=== PATIENT | female | born 1965 | race Caucasian/White ===

== ENCOUNTER 2024-04-08 11:28 | Emergency (ER) | payer BC, SELFPAY ==
--- NOTE | ~2024-04-08 | CT_ITS ---
EXAMINATION: CT abdomen pelvis w con DATE: 04/08/2024 16:16 INDICATION: Abdominal pain TECHNIQUE: Computed tomography (CT) of the abdomen and pelvis was performed with 100 mL Omnipaque-350 intravenous contrast. Automated exposure control and iterative reconstruction technique were employe d. The dose-length product was 673.04 mGy-cm. COMPARISON: None FINDINGS: Mild discoid atelectasis in the left lower lobe. Heart size is normal. No pericardial or pleural effu nicole. Liver, gallbladder, spleen, pancreas, bilateral adrenal glands and kidneys are normal. There is prominent edematous colonic wall thickening with surrounding stranding in the pericolonic fat. Begin [place] at the cecum and extending distally to the proximal most descending colon just beyond the spleni c flexure consistent with colitis which could be either infectious or inflammatory in etiology. There are a few diverticula without adjacent comparison to suggest diverticulitis along the sigmoid and di stal descending colon. Small bowel and appendix are normal. Decompressed bladder is normal. The uteru s and bilateral adnexa are unremarkable. Small amount of either reactive or physiologic nonloculated free fluid in the cul-de-sac. No abscess or free intraperitoneal gas. No pathologically enlarged abdo merly or pelvic lymphadenopathy. Moderate lumbar and lower thoracic spondylosis. IMPRESSION: 1. Colitis at the proximal to mid colon most likely infectious or inflammatory in etiology. Reviewed, dictated and finalized at location B. [employer]
[2024-04-08 11:51] VITALS: BP 172/73; PULSE 84; RESP 18; TEMP 36.1; O2SAT 100
[2024-04-08 13:54] VITALS: BP 127/67; PULSE 107; RESP 14; O2SAT 95
--- NOTE | 2024-04-08 15:10 | ED.ABDPAIN ---
HPI - Abdominal Pain General Chief Complaint: Abdominal Pain Stated Complaint: sent by , bloody diarrhea, fever, nausea Time Seen by Provider: 04/08/24 15:07 Source: patient Mode of arrival: ambulatory History of Present Illness HPI narrative: 59 years old white female went to [facility] March 30 back [place] on [place] 06 on arrival to [facility] patient developed frequent bloody diarrhea, 1 episode every 30 minutes on the and 12 today less frequent because she believed like everything got out. Patient is telling me that she was running fever 100.2 and chills. Associated with nausea and intermittent abdominal cramps. She denies any vomiting. History of asthma. Patient does not smoke or drink or use drugs. Related Data Allergies Allergy/AdvReac Type Severity Reaction Status Date / Time erythromycin base Allergy Unknown Unknown Verified 04/29/22 09:14 Review of Systems Review of Systems: All systems reviewed & are unremarkable except as noted in HPI and below PMFSH Past Medical History Medical History (Updated 04/08/24 @ 18:10 by Dahlia Mondragon MD) Anxiety FH: diabetes mellitus Mixed hyperlipidemia Asthma mild persistent asthma Migraine Hypertension Surgical History Surgical History S/P adenoidectomy History of tonsillectomy History of ovarian cystectomy History of total hysterectomy Family History Family History Mother Family history of glaucoma Grandparent Hypertension Father Family history of diabetes mellitus in first degree relative Other Asthma Carcinoma of colon Social History Social History Smoking status: Never smoker Second hand tobacco smoke exposure: No Alcohol intake: never Substance use: current Substance use type: marijuana Other substance usage details: edibles; for insomnia-2xmonth Exam Narrative: General appearance: Well-developed, well-nourished Skin: Normal color Head: Normocephalic, nontraumatic Eyes: Clear conjunctiva ENT: Oropharynx normal, ears normal, nose normal Neck: Supple, nontender Chest and respiratory: Airway patent, no respiratory distress, no accessory muscle use Heart: Regular rate/rhythm Abdomen: Soft, mild diffuse tenderness, hyperactive bowel sounds, no organomegaly Vascular: Normal peripheral pulses, normal capillary refill. Musculoskeletal: Normal range of motion, nontender back Neurologic: Alert and oriented ?3, DELIVERY AND MAIL SORTER is normal as tested, no gross motor deficit Course Consultations Consultation #1: Dr. Volodymyr Skelton, outpatient follow-up Date: 04/08/24 Vital Signs Vital signs: Vital Signs Temperature 36.1 C L 04/08/24 11:51 Pulse Rate 84 04/08/24 11:51 Respiratory Rate 18 04/08/24 11:51 Blood Pressure 172/73 H 04/08/24 11:51 Pulse Oximetry 100 04/08/24 11:51 Oxygen Delivery Room Air 04/08/24 11:51 Temperature 36.1 C L 04/08/24 11:51 Pulse Rate 91 04/08/24 18:15 Respiratory Rate 20 04/08/24 18:15 Blood Pressure 148/66 H 04/08/24 18:15 Pulse Oximetry 100 04/08/24 18:15 Oxygen Delivery Room Air 04/08/24 11:51 MDM - Abdominal Pain MDM Narrative Medical decision making narrative: Patient came from [facility] 2 days ago with diarrhea and abdominal cramps Vital signs on arrival showed blood pressure 172/73, temperature 36.1? otherwise insignificant abnormalities. Physical examination consistent with diffuse abdominal tenderness, mild, hyperactive bowel sounds Differential diagnosis include traveler diarrhea, dehydration, electrolyte imbalance Blood workup today includes CBC, CMP, lipase, lactic acid showed no significant abnormality Urinalysis showed no evidence of infection CT scan of the abdomen and pelvis with IV contrast showed1. Colitis at the proximal to mid colon most likely infectious or inflammatory in etiology. Differential Diagnosis Differential diagnosis: Likely other (As above) Medical Records Attestation: I reviewed the patient's medical records. Lab Data Attestation: I reviewed the patient's lab results. 04/08/24 15:21 04/08/24 15:21 Labs: Lab Results 04/08/24 Range/Units 15:21 WBC 13.6 H (4.5-10.0) K/mm3 RBC 5.27 (4.2-5.4) M/mm3 Hgb 15.6 H (12.0-15.0) g/dL Hct 46.8 (37.0-47.0) % MCV 88.8 (80-100) fl MCH 29.6 (26-34) pg MCHC 33.3 (32-36) g/dl RDW 12.5 (11.5-14.5) % Plt Count 324 (150-375) k/mm3 MPV 9.7 (7.4-10.4) fl Immature Gran % (Auto) 0.4 (0-0.5) % Neut % (Auto) 82.1 H (45.5-73.1) % Lymph % (Auto) 10.5 L (18.3-44.2) % Yates % (Auto) 6.8 (2.6-8.5) % Eos % (Auto) 0.0 (0-4.4) % Baso % (Auto) 0.2 (0.2-1.2) % Lymph # (Auto) 1.43 (0.9-3.2) K/mm3 Yates # (Auto) 0.9 H (0.1-0.6) K/mm3 Eos # (Auto) 0.0 (0-0.3) K/mm3 Baso # (Auto) 0.0 (0.0-0.1) K/mm3 Abs Immat Gran (auto) 0.05 H (0.00-0.031) K/mm3 Absolute Neuts (auto) 11.2 H (1.3-6.7) K/mm3 Absolute Nucleated RBC 0.000 (0.0-0.012) K/mm3 Nucleated RBC % 0.0 (0.0-0.2) % Sodium 136 L (137-145) mmol/L Potassium 3.7 (3.4-5.0) mmol/L Chloride 103 (98-107) mmol/L Carbon Dioxide 21 L (22-30) mmol/L Anion Gap 12 (4-12) mmol/L BUN 16 (7-17) mg/dL Creatinine 0.90 (0.7-1.0) mg/dL Estim Creat Clear Calc 57 ml/min Estimated GFR > 60 (59 - ) Glucose 99 (65-110) mg/dL Lactic Acid 1.1 (0.7-2.0) mmol/L Calcium 8.4 (8.4-10.2) mg/dL Total Bilirubin 0.6 (0.2-1.3) mg/dL AST 19 (14-36) U/L ALT 15 (6-35) U/L Alkaline Phosphatase 73 (38-126) U/L Total Protein 7.0 (6.3-8.2) g/dL Albumin 3.9 (3.5-5.1) g/dL Lipase 48 (23-300) U/L Urine Color Yellow (Yellow) Urine Appearance Clear (Clear) Urine pH 5.5 (5.0-9.0) Ur Specific [place] 1.031 (1.001-1.035) Urine Protein Trace (Negative) mg/dL Urine Glucose (UA) Negative (Negative) mg/dL Urine Ketones 2+ H (Negative) mg/dL Ur Blood (Man) Negative (Negative) Urine Nitrate Negative (Negative) Urine Bilirubin Negative (Negative) Urine Urobilinogen 0.2 (<2.0) mg/dL Leukocyte Esterase Rfl Negative (Negative) CRISTIANE/UL Urine RBC 3-5 H (0-2) /hpf Urine WBC 0-5 (0-3) /hpf Ur Squamous Epith Cells None seen (Few) /hpf Urine Bacteria None seen /hpf Urine Casts 3-5 Hyaline Casts Present (None) /lpf Imaging Data Radiologist's impression: ITS Impressions Abdomen/Pelvis CT 04/08/24 16:16 IMPRESSION: 1. Colitis at the proximal to mid colon most likely infectious or inflammatory in etiology. Critical Care Time Critical Care Time Critical Care Time: No Discharge Plan Discharge Clinical Impression: Diarrhea Patient Disposition: Home, Self-Care Condition: Stable Instructions: Antibiotic Form, Acute Diarrhea (ED) Additional Instructions: Return if symptoms are worsening , call Dr. Helm for appointment, take Tylenol as as needed for aches and pain, continue home medications. Encourage fluid intake Patient Language: Grenadian Prescriptions: New ciprofloxacin HCl [Cipro] 500 mg tablet 500 mg PO Q12H Qty: 10 0RF ondansetron 4 mg tablet,disintegrating 4 mg PO Q4H 0 Days Qty: 10 0RF Rx Instructions: give 1st dose 30min before emetogenic chemo No Action fluticasone propion-salmeterol [Advair Diskus] 250-50 mcg/dose blister with device 1 inh inhalation BID Qty: 180 2RF lorazepam 1 mg tablet 1 mg PO QHS PRN (Reason: anxiety) Qty: 30 0RF albuterol sulfate [ProAir HFA] 90 mcg/actuation HFA aerosol inhaler 1 inh INHALATION Q4H Qty: 25.5 2RF ergocalciferol (vitamin D2) [Vitamin D2] 1,250 mcg (50,000 unit) capsule See Rx Instructions .ROUTE .COMPLEX Qty: 13 3RF Dose Instruction: TAKE 1 CAPSULE BY MOUTH ONCE WEEKLY Rx Instructions: TAKE 1 CAPSULE BY MOUTH ONCE WEEKLY Follow-up/Referrals: Kallie Simmons MD [Primary Care Provider] - Daniel Zavaleta MD [Physician] - 04/09/24
[2024-04-08 15:31] LABS: Basophils Percent Auto 0.2 % (0.2-1.2); Hematocrit 46.8 % (37.0-47.0); Hemoglobin 15.6 g/dL (12.0-15.0); Immature Granulocyte Absolute 0.05 K/mm3 (0.00-0.031); Immature Granulocyte Percent A 0.4 % (0-0.5); Lymphocytes Absolute Auto 1.43 K/mm3 (0.9-3.2); Lymphocytes Percent Auto 10.5 % (18.3-44.2); Mean Corpuscular HGB Conc 33.3 g/dl (32-36); Mean Corpuscular Hemoglobin 29.6 pg (26-34); Mean Corpuscular Volume 88.8 fl (80-100); Mean Platelet Volume 9.7 fl (7.4-10.4); Monocytes Absolute Auto 0.9 K/mm3 (0.1-0.6); Monocytes Percent Auto 6.8 % (2.6-8.5); Neutrophils Absolute Auto 11.2 K/mm3 (1.3-6.7); Neutrophils Percent Auto 82.1 % (45.5-73.1); Platelet Count Result 324 k/mm3 (150-375); Red Blood Count 5.27 M/mm3 (4.2-5.4); Red Cell Distribution Width 12.5 % (11.5-14.5); White Blood Count 13.6 K/mm3 (4.5-10.0)
[2024-04-08 15:42] LABS: Alanine Aminotransferase 15 U/L (6-35); Albumin Level 3.9 g/dL (3.5-5.1); Alkaline Phosphatase 73 U/L (38-126); Anion Gap 12 mmol/L (4-12); Aspartate Amino Transferase 19 U/L (14-36); Bilirubin,Total 0.6 mg/dL (0.2-1.3); Blood Urea Nitrogen 16 mg/dL (7-17); Calcium 8.4 mg/dL (8.4-10.2); Carbon Dioxide 21 mmol/L (22-30); Chloride 103 mmol/L (98-107); Estimated CRCL calculation 57 ml/min; Estimated Glomerular Filt Rate > 60; Glucose 99 mg/dL (65-110); Lactic Acid Reflex 1.1 mmol/L (0.7-2.0); Lipase 48 U/L (23-300); Potassium 3.7 mmol/L (3.4-5.0); Sodium 136 mmol/L (137-145)
[2024-04-08 15:44] LABS: Add Urine Microscopic? YES; Appearance Urine Clear (Clear); Bacteria Urine None Seen /hpf; Bilirubin Urine Negative (Negative); Blood Urine Negative (Negative); Color Urine Yellow (Yellow); Glucose Urine UA Negative (Negative); Hyaline Casts Urine Present /lpf; Ketones Urine 2+ mg/dL (Negative); Leukocyte Esterase Ur Negative LEU/UL (Negative); Nitrate Urine Negative (Negative); Protein Urine Trace mg/dL (Negative); Specific Grav Ur 1.031 (1.001-1.035); Squamous Epithelial Cell Urine None Seen /hpf (Few); Urobilinogen Urine 0.2 mg/dL (<2.0); WBC Urine 0-5 /hpf (0-3); pH Urine 5.5 (5.0-9.0)
[2024-04-08] MEDS: ONDANSETRON INJ 4 MG/2 ML VIAL IV PUSH (15:59)
[2024-04-08] MEDS: SODIUM CHLORIDE 0.9% IV 1,000 ML 999 ML IV CONT ×2 (15:59→17:52)
[2024-04-08] MEDS: fentaNYL CITRATE INJ (*CRX) 100 MCG/2 ML VIAL 50 MCG IV PUSH (16:00)
[2024-04-08 17:50] VITALS: BP 156/70; PULSE 100; RESP 16; O2SAT 100
[2024-04-08 18:15] VITALS: BP 148/66; PULSE 91; RESP 20; O2SAT 100
[2024-04-08 19:02] VITALS: BP 136/84; PULSE 86; RESP 16; O2SAT 100
== END 2024-04-08 19:03 | disposition home or self-care (01) ==
PROVIDERS: Emergency Provider Emergency Medicine; PCP Family Medicine
DX: K52.9 Noninfective gastroenteritis and colitis, unspecified (principal); F41.9 Anxiety disorder, unspecified; I10 Essential (primary) hypertension; E78.5 Hyperlipidemia, unspecified; J45.909 Unspecified asthma, uncomplicated
CPT/HCPCS: 36415; 74177; 80053; 81001; 83605; 83690; 85025; 87045; 87427; 87449; 89055; 96361; 96374; 96375; 99284; J2405; J3010; J7030; Q9967

== ENCOUNTER 2024-08-05 00:48 | Day surgery (SDC) | payer BC, SELFPAY ==
[2024-07-23 12:48] VITALS: BMI 33.7
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
--- OUTSIDE RECORDS SUMMARY | 2024-08-05 00:52 | XMS_ITS | Continuity of Care Document ---
Author Organization [facility] Address [address] [place] [address] [address] [place] [address] Phone Care Team Providers Care Ladder Operator Name Role Phone Unavailable Unavailable Unavailable Advance Directives Directive Yes / No Effective Date File Name No Information Encounters Encounter Description Practice Location Reason(s) For Visit Diagnoses Date Provider Providers Copied on [facility]counter [facility] [id number] [place] [address] [address], [place], [place], [id number], [place] tel:[phone] [facility] Professional No Information 1 2 No Information Family History Family Member Type Diagnosis Age At Onset No Information Payers Payer name Insurance type Covered libertarian ID Authoriza tion(s) No Information Social History Type Description Quantity Date Captured Comments Sex Female Smoking Status No Information Chief Complaint And Reason For Visit No Information Reason For Referral Reason For Referral No Information History Of Present Illness Encounter Date Complaint History Of Prese nt Illness No Information Functional Status Date Functional Assessmen t No Information Instructions Date Instruction Additional Infor mation No Information Assessments Type Assessment Date No Information Patient Care Teams Name Effective Dates (start - stop) Status Members No Information
[2024-08-05 10:07] VITALS: BP 163/72; PULSE 84; RESP 18; TEMP 36.2; O2SAT 100; BMI 32.4
[2024-08-05] MEDS: LACTATED RINGERS 1,000 ML 150 ML IV CONT (10:17)
--- NOTE | 2024-08-05 10:29 | WPDANESEPPF ---
Anes - Initial Pre Proc Eval Procedure: Operation Date: 08/05/24 11:30 Proposed Procedures p Screening Colonoscopy - Daniel Zavaleta MD Date/Time: 08/05/24 10:29 Surgeon: Daniel Zavaleta MD Pre Op Diagnosis: Screening Patient Data Age: 59 Gender: F Height: 1.55 m Weight: 77.9 kg Last Vital Signs Temp 36.2 C L 08/05/24 10:07 Pulse 84 08/05/24 10:07 Resp 18 08/05/24 10:07 BP 163/72 H 08/05/24 10:07 Pulse Ox 100 08/05/24 10:07 O2 Del Method Room Air 08/05/24 10:07 Allergies Allergy/AdvReac Type Severity Reaction Status Date / Time erythromycin base Allergy Unknown Unknown Verified 08/05/24 10:06 Home Medications ?Medication ?Instructions ?Recorded ?Confirmed ?Type ergocalciferol (vitamin D2) 1,250 See Rx Instructions .Route 10/30/23 08/05/24 Rx mcg (50,000 unit) capsule (Vitamin .COMPLEX #13 caps D2) albuterol sulfate 90 mcg/actuation 1 inh inhalation Q4H #25.5 grams 07/22/24 07/23/24 Rx aerosol inhaler (ProAir HFA) budesonide-formoterol HFA 160 2 puff inhalation Q12H #10.2 grams 07/24/24 08/05/24 Rx mcg-4.5 mcg/actuation aerosol inhaler Patient hx anesthesia problems: none Family hx anesthesia problems: none Results Review: All pre-operative results and documents have been reviewed as part of the pre-operative evaluation. [facility] Past Medical History Medical History Anxiety FH: diabetes mellitus Mixed hyperlipidemia Asthma mild persistent asthma Migraine Hypertension Surgical History Surgical History History of tubal ligation S/P adenoidectomy History of tonsillectomy History of ovarian cystectomy Family History Family History Mother Family history of glaucoma Grandparent Hypertension Father Family history of diabetes mellitus in first degree relative Other Asthma Carcinoma of colon Social History Social History Smoking status: Never smoker Second hand tobacco smoke exposure: No Alcohol intake: never Substance use: current Substance use type: marijuana Other substance usage details: edibles; for insomnia-2xmonth Anes - Eval Final PreProcedure Day of Procedure 08/05/24 10:29 Patient weight: obese Heart: regular rate and rhythm Lungs: clear to auscultation Airway: Mallampati scale class II Neurological: alert and oriented Last oral intake: >/= 8 hours ASA classification: III Emergent: no Anesthetic plan: proceed Anesthesia type and monitoring: general GIVS and standard monitoring Results Review: All pre-operative results and documents have been reviewed as part of the pre-operative evaluation. Informed Consent: The patient's anesthetic plan and its attendant risks and benefits were discussed with the patient/family/POA. Questions were solicited and answers provided to the satisfaction of the patient/family/POA.
--- NOTE | 2024-08-05 10:38 | PM.HPGS ---
History of Present Illness History of Present Illness Consent: Risks, benefits, and alternatives have been discussed and questions answered. Patient agrees to proceed with procedure. Chief complaint: Screening Narrative: Vanesa Brody is a 59 year old female here for first screening colonoscopy Review of Systems Review of Systems: All systems reviewed & are unremarkable except as noted in HPI and below PMFSH Past Medical History Medical History Anxiety FH: diabetes mellitus Mixed hyperlipidemia Asthma mild persistent asthma Migraine Hypertension Surgical History Surgical History History of tubal ligation S/P adenoidectomy History of tonsillectomy History of ovarian cystectomy Family History Family History Mother Family history of glaucoma Grandparent Hypertension Father Family history of diabetes mellitus in first degree relative Other Asthma Carcinoma of colon Social History Social History Smoking status: Never smoker Second hand tobacco smoke exposure: No Alcohol intake: never Substance use: current Substance use type: marijuana Other substance usage details: edibles; for insomnia-2xmonth Meds Home Medications and Allergies Home Medications ?Medication ?Instructions ?Recorded ?Confirmed ?Type ergocalciferol (vitamin D2) 1,250 See Rx Instructions .Route 10/30/23 08/05/24 Rx mcg (50,000 unit) capsule (Vitamin .COMPLEX #13 caps D2) albuterol sulfate 90 mcg/actuation 1 inh inhalation Q4H #25.5 grams 07/22/24 07/23/24 Rx aerosol inhaler (ProAir HFA) budesonide-formoterol HFA 160 2 puff inhalation Q12H #10.2 grams 07/24/24 08/05/24 Rx mcg-4.5 mcg/actuation aerosol inhaler Allergies Allergy/AdvReac Type Severity Reaction Status Date / Time erythromycin base Allergy Unknown Unknown Verified 08/05/24 10:06 Vital Signs Vital Signs - 24 hr 08/05/24 10:07 Temperature 97.1 F L Pulse Rate 84 Respiratory Rate 18 Blood Pressure 163/72 H Pulse Oximetry 100 Oxygen Delivery Room Air Exam Const: General: comfortable and no acute distress HENMT: Face/Nose/Sinus: Normal nares present Eyes: General: appearance normal, both eyes and all related structures Neck: Neck: no JVD Resp: Auscultation: clear to auscultation bilaterally Cardio: Rate: regular rate Rhythm: regular rhythm GI: Inspection: non-distended GI Palp: Yes Soft to palpation Skin: General skin exam: normal color Neuro: General: gait normal Speech: normal speech Extrem: General: normal to inspection Psych: Mental Status: mental status grossly normal Assessment and Plan Assessment and plan (1) Colon cancer screening: Code(s): Z12.11 - Encounter for screening for malignant neoplasm of colon Status: Acute Assessment and Plan: colonoscopy
[2024-08-05 10:54] VITALS: BP 102/44; PULSE 70; RESP 20; O2SAT 97
[2024-08-05 11:04] VITALS: BP 115/61; PULSE 67; RESP 18; O2SAT 99
[2024-08-05 11:14] VITALS: BP 120/61; PULSE 63; RESP 20; O2SAT 100
== END 2024-08-05 11:32 | disposition home or self-care (01) ==
PROVIDERS: PCP Family Medicine; Visit Provider Internal Medicine Gastroenterology
PROC: 0DJD8ZZ Inspection of Lower Intestinal Tract, Via Natural or Artificial Opening Endoscopic (ICD-10-PCS; CPT 45378; principal; 2024-08-05 11:30)
DX: Z12.11 Encounter for screening for malignant neoplasm of colon (principal); K57.30 Diverticulosis of large intestine without perforation or abscess without bleeding; K64.8 Other hemorrhoids; E66.9 Obesity, unspecified; Z68.32 Body mass index [BMI] 32.0-32.9, adult; F12.90 Cannabis use, unspecified, uncomplicated
CPT/HCPCS: 45378; J2003; J2704; J7120